=== PATIENT | female | born 1970 | race Caucasian/White ===

== ENCOUNTER 2021-07-02 22:00 | Emergency (ER) | payer BC ==
[~2021-07-02] VITALS: Ht 177.8 cm; Wt 74.8 kg
--- NOTE | 2021-07-02 22:10 | NUR ---
PATIENT C/O CAT SCRATCH AND BITE TO MULITPLE AREAS ON FACE.PT RIGHT SIDE OF FOREHEAD, LEFT EAR AND LEFT NOSE NOTED CUTS. PATIENT IS A/O X 4, RR EVEN AND UNLABORED, NO SOB NOTED. PATIENT CONNECTED TO MONITORS.
[2021-07-02] MEDS ORDERED: AMOX-430 PO (22:25)
[2021-07-02] MEDS ORDERED: AMOX/CLAVULANATE 875 MG TABLET ONE (22:36)
[2021-07-02] MEDS ORDERED: TDAP [DIPH/PERTUSSIS/TET] 0.5 ML VIAL IM ONE (22:37)
[2021-07-02] MEDS: AMOX/CLAVULANATE 875 MG TABLET PO ONE (22:41)
[2021-07-02] MEDS: TDAP [DIPH/PERTUSSIS/TET] 0.5 ML VIAL IM ONE (22:42)
--- NOTE | 2021-07-02 23:15 | NUR ---
Patient discharged to home in stable condition. Rx and Written and verbal after care instructions given. Patient verbalizes understanding of instruction.
[2021-07-02 23:21] VITALS: BP 142/78
== END 2021-07-02 23:15 | disposition home or self-care (01) ==
LOC: ER 22:06
DX: S01.81XA Laceration without foreign body of other part of head, initial encounter (principal); W55.01XA Bitten by cat, initial encounter; Y93.89 Activity, other specified; Y92.89 Other specified places as the place of occurrence of the external cause; Y99.8 Other external cause status
CPT/HCPCS: 90715